=== PATIENT | female | born 1980 | race Caucasian/White ===

== ENCOUNTER 2017-06-15 08:04 | Emergency (ER) | payer OTHER ==
[2017-06-15 08:38] LABS: URINE HCG POC HCG NEGATIVE (Negative)
[2017-06-15] MEDS: KETOROLAC 60 MG/2 ML INJ. IM (08:43)
[2017-06-15] MEDS: cefTRIAXone IM 1 GM VIAL IM (10:05)
== END 2017-06-15 10:24 | disposition home or self-care (01) ==
LOC: ER 08:04
DX: J18.1 Lobar pneumonia, unspecified organism (principal); F31.9 Bipolar disorder, unspecified; F41.9 Anxiety disorder, unspecified; F17.200 Nicotine dependence, unspecified, uncomplicated; F12.10 Cannabis abuse, uncomplicated; Z91.041 Radiographic dye allergy status
CPT/HCPCS: 71020; 81025; 93005; 96372; 99284-25; J0696; J1885